=== PATIENT | female | born 1995 | race Two or more races ===

== ENCOUNTER 2018-04-28 15:17 | Emergency (ER) | payer MEDICAID ==
[~2018-04-28] VITALS: Ht 162.6 cm; Wt 80.0 kg
[2018-04-28] MEDS ORDERED: ONDANSETRON HCL 4MG/2ML INJ IV STA (16:37)
[2018-04-28] MEDS ORDERED: SODIUM CHLORIDE 0.9% 1,000 ML IV ONE (16:37)
[2018-04-28] MEDS ORDERED: MECLIZINE 12.5MG TABLET PO ONE (16:45)
[2018-04-28] MEDS ORDERED: MECLIZINE 25MG TABLET PO NR (17:15)
[2018-04-28 20:01] VITALS: BP 118/72
== END 2018-04-28 20:02 | disposition home or self-care (01) ==
LOC: ER 15:17
DX: H81.10 Benign paroxysmal vertigo, unspecified ear (principal); R00.1 Bradycardia, unspecified; Z90.49 Acquired absence of other specified parts of digestive tract
CPT/HCPCS: 93005; 96361; 96374; 99283; J2405; J7030; J8597